=== PATIENT | female | born 1950 | race Caucasian/White ===

== ENCOUNTER → 2016-08-13 14:46 | Outpatient (CLI) | payer BC ==
[2013-05-19 09:07] VITALS: BMI 28.4
[~2016-08-13 14:46] MED LIST: ALDACTONE50 MG PO; AMBIEN10 MG PO; ARMOUR THYROID90 MG PO; ATARAX 25 MG TA25 MG PO; CALCIUM 600+D T1 TA1 PO; DULERA 200 MCG8.8 GM INH; ELIQUIS5 MG PO; ESTRACE1 MG PO; ESTRACE2 MG PO; FIRST-TESTOSTER60 G1; FLORAJEN3 CAPS460 MG PO; FLOVENT DI50 MCG/DIS INH; FLOVENT HFA 410.6 GM INH; FLUTICASONE PRO16 GM NASAL; FLUTICASONE PRO16 GM NS; GLUCOPHAGE500 MG PO; IBUPROFEN800 MG PO; LAMISIL250 MG PO; Levaquin PO; NYSTATIN ORAL SU5 ML PO; PROMETRIUM100 MG PO; PROMETRIUM200 MG PO; ROBAXIN-750750 MG PO; SINGULAIR10 MG PO; STRATTERA80 MG PO; SYMBICORT 16010.2 GM INH; VICTOZA0.6 MG/0.1 SQ; VITAMIN B COMPL1 TA1 PO; VITAMIN B-121000 MCG PO; VITAMIN D250000 UNIT PO; VITAMIN D5000 UNIT PO; XANAX0.5 MG; XOPENEX HFA15 GM INH; ZOLOFT100 MG PO; ZYRTEC10 MG PO
[2016-08-13 15:13] LABS: BASOPHILS 0.4 % (0.0-2.0); EOSINOPHILS 1.8 % (0-7); HEMATOCRIT 33.1 % (36.0-48.0); HEMOGLOBIN 11.2 g/dL (12-16); IMMATURE GRANULOCYTES 0.4 % (0-5); LYMPHOCYTES 11.3 % (15-50); MCH 31.7 pg (26.0-34.0); MCHC 33.8 g/dL (31.0-37.0); MCV 93.8 fL (80.0-100.0); MEAN PLATELET VOLUME 8.6 fL (7.4-10.4); MONOCYTES 11.3 % (2-11); NEUTROPHILS 74.8 % (40-80); PLATELET COUNT 211 10x3/uL (130-400); RBC 3.53 10x6/uL (4.00-5.40); WBC 10.4 10x3/uL (4.8-10.8)
[2016-08-27 18:34] VITALS: BMI 25.4
== END | disposition home or self-care (01) ==
LOC: D.RAD 14:46
PROVIDERS: Internal Medicine Pulmonary Disease
DX: J40 Bronchitis, not specified as acute or chronic (principal)

== ENCOUNTER 2016-08-27 15:17 | Inpatient (IN) | payer BC ==
[~2016-08-27] VITALS: Ht 157.5 cm; Wt 64.2 kg
[~2016-08-27 15:17] MED LIST changes: -ALDACTONE50 MG PO; -DULERA 200 MCG8.8 GM INH; -ELIQUIS5 MG PO; -ESTRACE2 MG PO; -FLORAJEN3 CAPS460 MG PO; -GLUCOPHAGE500 MG PO; -IBUPROFEN800 MG PO; -Levaquin PO; -NYSTATIN ORAL SU5 ML PO; -PROMETRIUM200 MG PO; -SINGULAIR10 MG PO; -VICTOZA0.6 MG/0.1 SQ; -VITAMIN B-121000 MCG PO; -ZOLOFT100 MG PO
[2016-08-27] MEDS ORDERED: ESTRACE2 MG PO (15:53)
[2016-08-27] MEDS ORDERED: ESTRACE1 MG PO (15:53)
[2016-08-27] MEDS ORDERED: PROMETRIUM200 MG PO (15:55)
[2016-08-27] MEDS ORDERED: DULERA 200 MCG8.8 GM INH (16:00)
[2016-08-27] MEDS ORDERED: SINGULAIR10 MG PO (16:01)
[2016-08-27] MEDS ORDERED: GLUCOPHAGE500 MG PO (16:02)
[2016-08-27] MEDS ORDERED: VICTOZA0.6 MG/0.1 SQ (16:03)
[2016-08-27] MEDS ORDERED: ZOLOFT100 MG PO (16:03)
[2016-08-27] MEDS ORDERED: VITAMIN B-121000 MCG PO (16:04)
[2016-08-27] MEDS ORDERED: ALDACTONE50 MG PO (16:05)
--- NOTE | 2016-08-27 16:20 | NUR ---
20 GAUGE IV PLACED TO LEFT FOREARM X 1 STICK. GOOD BLOOD RETURN, EASY FLUSH. TAPED, DATED AND SECURED. PATIENT TOLERATED IV PLACEMENT WELL. NO DISTRESS.
[2016-08-27 16:32] LABS: BASOPHILS 0.1 % (0.0-2.0); EOSINOPHILS 1.1 % (0-7); HEMATOCRIT 35.8 % (36.0-48.0); HEMOGLOBIN 12.5 g/dL (12-16); IMMATURE GRANULOCYTES 1.1 % (0-5); MCH 32.4 pg (26.0-34.0); MCHC 34.9 g/dL (31.0-37.0); MCV 92.7 fL (80.0-100.0); MEAN PLATELET VOLUME 8.5 fL (7.4-10.4); MONOCYTES 7.6 % (2-11); NEUTROPHILS 81.1 % (40-80); PLATELET COUNT 182 10x3/uL (130-400); RBC 3.86 10x6/uL (4.00-5.40); WBC 14.9 10x3/uL (4.8-10.8)
[2016-08-27 16:57] LABS: HEMOGLOBIN A1C 5.5 % (4.8-6.0)
[2016-08-27 16:57] LABS: ALBUMIN 3.4 g/dL (3.4-5.0); ANION GAP 16.1 mmol/L (8-16); BILIRUBIN - TOTAL 0.33 mg/dL (0.2-1.3); CALCIUM 8.7 mg/dL (8.5-10.1); CARBON DIOXIDE 22.7 mmol/L (21.0-32.0); POTASSIUM - SERUM 3.8 mmol/L (3.5-5.1); PROTEIN - SERUM 6.3 g/dL (6.4-8.2)
--- NOTE | 2016-08-27 17:20 | NUR ---
PATIENT LEFT FOR CT AT THIS TIME VIA WHEELCHAIR. NO DISTRESS.
--- NOTE | 2016-08-27 17:40 | NUR ---
PATIENT RETURNED FROM CT SCAN AND IV ABX STARTED AT THIS TIME. NO DISTRESS.
--- NOTE | 2016-08-27 18:00 | NUR ---
DR. BLANCHARD, RADIOLOGIST CALLED TO CONFIRM THAT PATIENT DOES HAVE A PULMONARY EMBOLISM IN LEFT LOWER LOBE AND RIGHT UPPER LOBE. DR. LANIER AT [facility] WHEN CALL RECEIVED AND MADE AWARE THAT PATIENT DOES HAVE PE. DR. LANIER SPOKE WITH PATIENT AND NEW ORDERS RECEIVED AND ENTERED INTO THE COMPUTER FOR LOVENOX 60MG BID.
[2016-08-27 18:34] VITALS: BP 121/58; Ht 157.5 cm; Wt 64.2 kg
[2016-08-27 19:27] LABS: ERYTHROCYTE SEDIMENTATION RATE 13 mm/hr (0-30)
[2016-08-27 20:00] VITALS: BP 136/57
--- NOTE | 2016-08-27 20:30 | NUR ---
ALERT AND ORIENTED X3, RESP UNLAB ON ROOM AIR. LEFT FA IV INTACT AND PATENT WITH NO R/S NOTED AT SITE. VOICES NO C/O PAIN OR DISCOMFORT AT THIS TIME. HOB UP SR UP X2, C/L IN REACH. DAUGHTER VISITING AT BEDSIDE. CONTINUE TO MONITOR.
[2016-08-27 21:47] LABS: APPEARANCE CLEAR (CLEAR); BILIRUBIN NEGATIVE (NEGATIVE); COLOR YELLOW (YELLOW); GLUCOSE NEGATIVE (NEGATIVE); KETONE NEGATIVE (NEGATIVE); LEUKOCYTE ESTERASE 2+ (NEGATIVE); NITRITE NEGATIVE (NEGATIVE); PROTEIN NEGATIVE (NEGATIVE); UROBILINOGEN NORMAL (NORMAL)
[2016-08-27 21:49] LABS: BACTERIA MODERATE /hpf (NONE SEEN); EPITHELIAL CELLS 0-5 /hpf (0-5)
[2016-08-28] VITALS: BP 97/44
[2016-08-28 04:00] VITALS: BP 136/64
[2016-08-28 05:38] LABS: BASOPHILS 0 % (0.0-2.0); EOSINOPHILS 0 % (0-7); HEMATOCRIT 31.9 % (36.0-48.0); HEMOGLOBIN 11.1 g/dL (12-16); IMMATURE GRANULOCYTES 0.8 % (0-5); LYMPHOCYTES 2.5 % (15-50); MCH 31.7 pg (26.0-34.0); MCHC 34.8 g/dL (31.0-37.0); MCV 91.1 fL (80.0-100.0); MEAN PLATELET VOLUME 8.8 fL (7.4-10.4); MONOCYTES 0.7 % (2-11); PLATELET COUNT 194 10x3/uL (130-400); RDW 13.6 % (11.5-14.5); WBC 9.6 10x3/uL (4.8-10.8)
[2016-08-28 05:43] LABS: CARBON DIOXIDE 19.3 mmol/L (21.0-32.0); CREATININE - SERUM 0.9 mg/dL (0.6-1.3); POTASSIUM - SERUM 3.3 mmol/L (3.5-5.1)
[2016-08-28 08:05] VITALS: BP 136/69
--- NOTE | 2016-08-28 09:29 | NUR ---
PT ASSESSMENT COMPLETED NO DISTRESS OBSERVED CALL LIGHT IN REACH SRX2 BED LOW AND LOCKED CALL LIGHT IN REACH SRX2 BED LOW AND LOCKED WILL MONITOR
--- NOTE | 2016-08-28 10:48 | HP ---
PATIENT: SHIRLEY MORENO MEDICAL RECORD: [id number] ACCOUNT: [id number] LOCATION:[address] : [birth year] ADMISSION DATE: 08/27/16 HISTORY AND PHYSICAL EXAMINATION HISTORY OF PRESENT ILLNESS: Ms. Moreno is a 65-year-old white female, patient of Dr. Connelly that was seen by Dr. Ortiz today and subsequently admitted for acute exacerbation of asthma and pneumonia. She has had dyspnea for 4 months, had a cardiac workup, which was negative by Dr. Bowers. She was started on p.o. steroids about 2 weeks ago and has not gotten any better. She had a nebulizer ordered, but has not received yet. She presents with dyspnea, worse with exertion, rhinorrhea and cough. She has not had any fever. She feels cold all the time. Perfumes and chemical tend to trigger asthma. She was at a this week with some exposure to triggers. She complained of chest tightness. She has chronic pain from fibromyalgia and takes NSAIDs ____. She has no diarrhea or constipation. PAST MEDICAL HISTORY: Significant for known prediabetes, fibromyalgia, hypothyroidism, asthma, restless legs syndrome and migraine headaches. PAST SURGICAL HISTORY: Surgeries include section times 3, Song fundoplication, cervical fusion with plate, Barnes's neuroma, bilateral tonsillectomy, tubal ligation, removal of a benign breast tumor, right knee scope and fifth finger ORIF. ALLERGIES: INCLUDE LATEX AND FRAGRANCES. HOME MEDICATIONS: Include estradiol, Prometrium, Dulera, Singulair, metformin 500 daily for prediabetes, sertraline 100 daily, Victoza 1.8 subQ daily, B12, spironolactone 50 mg a day, [place] Thyroid 90 mg a day, hydroxyzine 25 t.i.d. p.r.n., methocarbamol 750 q.i.d. p.r.n., amlodipine 10 at bedtime, Zyrtec, vitamin D3 and fluticasone. FAMILY HISTORY: Noncontributory. SOCIAL HISTORY: Does not drink. REVIEW OF SYSTEMS: Significant for URI symptoms as above. No fever. Increasing shortness of breath with wheezing. No diarrhea, constipation, nausea, or vomiting. No dysuria. PHYSICAL EXAMINATION: GENERAL: Alert, awake and conversant. HEENT: Mucous membranes are moist. Conjunctivae pink. Pupils are equal and reactive. NECK: Nontender. HEART: Regular rate and rhythm. LUNGS: No acute distress. Decreased breath sounds with some wheezes. There is no rhonchi. ABDOMEN: Soft. NEUROLOGIC: Without any gross focal deficits. IMPRESSION: 1. Pneumonia. 2. Asthma exacerbation. HISTORY AND PHYSICAL [id number] [place] 3. Rhinitis, thrush, fibromyalgia, hypothyroidism and prediabetes. PLAN: Admit orders written by Dr. Ortiz, appreciate his help. See orders for plan. TRANSINT:[id number] Voice Confirmation ID: [id number] DOCUMENT ID: [id number] JAYA LANIER DO at 1048 CC: [id number] DICTATION DATE: 08/27/16 170 EXTRUSION SUPERVISOR: 08/27/16 1741 ADM IN [facility] [address] [place] [address]
--- NOTE | 2016-08-28 11:26 | NUR ---
PT ECHO BEING COMPLETED AT THIS TIME NO DISTRESS OBSERVED DAUGHTER IN ROOM AT BEDSIDE WILL MONITOR
--- NOTE | 2016-08-28 15:37 | NUR ---
TELEMETRY ON PT AT THIS TIME AND READING 86 SR NO DISTRESS OBSERVED AND WILL MONITOR
--- NOTE | 2016-08-28 15:45 | NUR ---
PROVIDED PT WITH CULTURE CUP FOR RESPITORY CULTURE TO COLLECT AND CULTURE PER DR NICHOLSON
[2016-08-28 17:04] VITALS: BP 143/47
--- NOTE | 2016-08-28 19:56 | NUR ---
PT RESTING IN BED, FAMILY AT BEDSIDE. PT DENIES NEEDS. BED LOW. CL IN REACH.
--- NOTE | 2016-08-28 20:30 | NUR ---
PT TOOK HS MEDS WITHOUT DIFFICULTY. PT DENIES NEEDS AT THIS TIME. BED LOW. CL IN REACH.
[2016-08-28 21:17] VITALS: BP 122/60
--- NOTE | 2016-08-28 22:42 | NUR ---
PT RESTING, EYES CLOSED. BED LOW. CL IN REACH.
[2016-08-29 01:21] VITALS: BP 125/54
--- NOTE | 2016-08-29 02:38 | NUR ---
PT RESTING, EYES CLOSED. RR ARE EVEN AND UNLABORED. WCTM. BED LOW. CL IN REACH.
[2016-08-29 04:00] VITALS: BP 139/54
[2016-08-29 05:42] LABS: ANION GAP 16.2 mmol/L (8-16); CALCIUM 7.6 mg/dL (8.5-10.1); CARBON DIOXIDE 20.2 mmol/L (21.0-32.0); CREATININE - SERUM 1.1 mg/dL (0.6-1.3); POTASSIUM - SERUM 3.4 mmol/L (3.5-5.1)
[2016-08-29 05:45] LABS: BASOPHILS 0.1 % (0.0-2.0); EOSINOPHILS 0.6 % (0-7); HEMATOCRIT 29.6 % (36.0-48.0); HEMOGLOBIN 10.2 g/dL (12-16); IMMATURE GRANULOCYTES 0.7 % (0-5); LYMPHOCYTES 13.2 % (15-50); MCH 31.8 pg (26.0-34.0); MCHC 34.5 g/dL (31.0-37.0); MCV 92.2 fL (80.0-100.0); MEAN PLATELET VOLUME 8.8 fL (7.4-10.4); MONOCYTES 7.6 % (2-11); NEUTROPHILS 77.8 % (40-80); PLATELET COUNT 182 10x3/uL (130-400); RBC 3.21 10x6/uL (4.00-5.40)
[2016-08-29 05:47] LABS: WBC 12.6 10x3/uL (4.8-10.8)
--- NOTE | 2016-08-29 06:30 | NUR ---
PT AM MEDS ADMINISTERED ALONG WITH 40MEQ OF POTASSIUM FOR LEVEL 3.4. PT DENIES NEEDS. BED LOW. CL IN REACH.
--- NOTE | 2016-08-29 07:18 | NUR ---
PT SITTING UP IN BED RECEIVING BREATHING TX DENIES NEEDS WILL CONT TO MONITOR.
[2016-08-29 07:21] LABS: MAGNESIUM - SERUM 1.7 mg/dL (1.8-2.4); PHOSPHOROUS 2.7 mg/dL (2.5-4.9)
[2016-08-29 08:45] VITALS: BP 126/46
[2016-08-29] MEDS ORDERED: IBUPROFEN800 MG PO (10:40)
--- NOTE | 2016-08-29 11:05 | NUR ---
PT KCL LEVEL BACK UP TO 3.9. WILL REDRAW LABS FOR IN THE AM.
[2016-08-29 12:16] LABS: ANA REFLEX - DIRECT Negative (Negative)
[2016-08-29 12:16] LABS: ACLA - IGG AB <9 GPL U/mL (0-14); ACLA - IGM AB 16 MPL U/mL (0-12)
[2016-08-29 12:38] VITALS: BP 140/60
--- NOTE | 2016-08-29 12:45 | NUR ---
PT SITTING UP IN BED EATING LUNCH. FAMILY AT BEDSIDE. DENIES NEEDS WILL CONT TO MONITOR.
[2016-08-29 16:07] VITALS: BP 120/54
--- NOTE | 2016-08-29 18:16 | NUR ---
PT SITTING UP IN BED FAMILY AT BEDSIDE DENIES NEEDS
[2016-08-29 20:00] VITALS: BP 129/48
--- NOTE | 2016-08-29 20:20 | NUR ---
PT RECEIVED LYING IN BED AAOX3 WITH FAMILY AT BEDSIDE. ASSESSMENT COMPLETED PER FLOWSHEET AT THIS TIME. PT VOIDED APPROX 1000 CC QUETA URINE. EMPTIED FROM HAT AT THIS TIME. PT DENIES NEEDS. BED LOW. PHONE AND CALL LIGHT IN REACH. SRX2.
--- NOTE | 2016-08-29 21:10 | NUR ---
PT FSBS 130 AT THIS TIME. PT DENIES NEEDS. BED LOW. PHOEN AND CALL LIGHT IN REACH. SRX2.
--- NOTE | 2016-08-29 22:23 | NUR ---
PM MEDS GIVEN AT THIS TIME. PT DENIES NEEDS. BED LOW. PHONE AND CALL LIGHT IN REACH. SRX2.
--- NOTE | 2016-08-29 23:32 | NUR ---
PT RESTING QUIETLY AT THIS TIME WITH EYES CLOSED. RESPIRATIONS EVEN, NON-LABORED. NO ACUTE DISTRESS NOTED AT THIS TIME. BED LOW. PHONE AND CALL LIGHT IN REACH. SRX2.
[2016-08-30] VITALS: BP 123/47
--- NOTE | 2016-08-30 00:58 | NUR ---
PT RECEIVING BREATHING TREATMENT AT THIS TIME. DENIES NEEDS. BED LOW. PHONE AND CALL LIGHT IN REACH. SRX2.
--- NOTE | 2016-08-30 02:03 | NUR ---
PT RESTING QUIETLY AT THIS TIME WITH EYES CLOSED. AROUSED EASILY. DENIES NEEDS. BED LOW. PHONE AND CALL LIGHT IN REACH. SRX2.
[2016-08-30 04:00] VITALS: BP 115/58
--- NOTE | 2016-08-30 05:39 | NUR ---
PT RESTING QUIETLY AT THIS TIME WITH EYES CLOSED. AROUSED EASILY. ADMINISTERED PROTONIX PO PER ORDERS AT THIS TIME. PT DENIES NEEDS. BED LOW. PHONE AND CALL LIGHT IN REACH. SRX2.
[2016-08-30 05:45] LABS: BASOPHILS 0.2 % (0.0-2.0); EOSINOPHILS 2.4 % (0-7); HEMATOCRIT 30.9 % (36.0-48.0); HEMOGLOBIN 10.7 g/dL (12-16); IMMATURE GRANULOCYTES 0.4 % (0-5); LYMPHOCYTES 19.4 % (15-50); MCH 32.2 pg (26.0-34.0); MCHC 34.6 g/dL (31.0-37.0); MCV 93.1 fL (80.0-100.0); MEAN PLATELET VOLUME 8.4 fL (7.4-10.4); MONOCYTES 8.4 % (2-11); NEUTROPHILS 69.2 % (40-80); PLATELET COUNT 158 10x3/uL (130-400); RBC 3.32 10x6/uL (4.00-5.40); RDW 14.3 % (11.5-14.5); WBC 9.3 10x3/uL (4.8-10.8)
[2016-08-30 05:52] LABS: CALC OSMOLALITY 276 mosm/kg (275-300); CHLORIDE - SERUM 105 mmol/L (98-107); CREATININE - SERUM 0.8 mg/dL (0.6-1.3); GLUCOSE 97 mg/dL (74-106); MAGNESIUM - SERUM 2.1 mg/dL (1.8-2.4); PHOSPHOROUS 2.6 mg/dL (2.5-4.9); SODIUM 139 mmol/L (136-145); UREA NITROGEN 9 mg/dL (7-18); eGFR NON AFRICAN AMERICAN 77 mL/min (90-120)
--- NOTE | 2016-08-30 06:44 | NUR ---
PT FSBS 86 AT THIS TIME. PT DENIES NEEDS. BED LOW. PHONE AND CALL LIGHT IN REACH. SRX2.
--- NOTE | 2016-08-30 07:22 | NUR ---
PT SITTING UP IN BED WATCHING TV DENIES NEEDS WILL CONT TO MONITOR
[2016-08-30 08:56] VITALS: BP 122/65
[2016-08-30 09:17] LABS: PROTEIN S - FREE 60 % (57-157); PROTEIN S - TOTAL 99 % (60-150)
[2016-08-30] MEDS ORDERED: ELIQUIS5 MG PO (10:24)
[2016-08-30] MEDS ORDERED: Levaquin PO (10:24)
[2016-08-30] MEDS ORDERED: NYSTATIN ORAL SU5 ML PO (10:24)
[2016-08-30] MEDS ORDERED: FLORAJEN3 CAPS460 MG PO (10:26)
[2016-08-30 11:19] LABS: PROTEIN S - FREE 65 % (57-157); PROTEIN S - FUNCTIONAL 104 % (63-140); PROTEIN S - TOTAL 96 % (60-150)
--- NOTE | 2016-08-30 12:38 | NUR ---
Patient Name: SHIRLEY SMION Admission Status: Urgent Accout number: [id number] Admission Date: 08-27-2016 : 1950 Admission Diagnosis:SHORTNESS OF BREATH Attending: YSABEL Current LOS: 3 Anticipated DC Date: 08-30-2016 Planned Disposition: Home or Self Care Primary Insurance: [employer] [facility] Discharge Planning Comments: CM met with patient and patient's daughter "Monique" ([phone]) at bedside to discuss discharge planning and needs. The patient resides at home with her spouse in a single story home with 2 steps at the front door. Her daughter states she lives next door and is available to assist with any needs. The patient denies the need for home health or DME supplies at this time. Patient states she is independent of all ADL's. Her daughter will be her transportation home at discharge. CM will continue to follow and assist as needed with discharge planning/needs. Box Stacker: Brooklyn Cardona * Is the patient Alert and Oriented? Yes 0 * How many steps to enter\\exit or inside your home? 2 0 * PCP DR. GARCÍA 0 * [facility] [phone] 0 * Preadmission Environment Home with Family 0 * ADLs Independent 0 * Equipment None 0 * List name and contact numbers for known caregivers / representatives who currently or will assist patient after discharge: EDI SIMON (SPOUSE) [phone] "MONIQUE" (DTR) [phone] 0 * Community resources currently utilized None 0 * Additional services required to return to the preadmission environment? No 0 * Can the patient safely return to the preadmission environment? Yes 0 * Has this patient been hospitalized within the prior 30 days at any hospital? No 0 Grand Total: 0
[2016-08-30] MEDS ORDERED: GLUCOPHAGE500 MG PO (12:52)
[2016-08-30] MEDS ORDERED: VICTOZA0.6 MG/0.1 SQ (12:52)
--- NOTE | 2016-08-30 13:27 | NUR ---
WENT OVER DC INSTRUCTIONS WITH PT PT VERBALIZES UNDERSTANDING. DC TELE. DC PIV WITH CATHETER TIP INTACT. GIVEN PT SCRIPTS FOR PRESCRIBED MEDICATIONS. PT GETTING DRESSED AND WILL CALL WHEN READY FOR WHEELCHAIR.
[2016-08-30 14:21] LABS: LUPUS - INTERPRETATION Comment: (()); LUPUS - THROMBIN TIME 14.7 sec (0.0-20.9); PTT-LA 39.7 sec (0.0-43.6)
[2016-08-31 03:08] LABS: PROTEIN C - ANTIGEN 116 % (60-150); PROTEIN C - FUNCTIONAL 137 % (73-180)
--- NOTE | 2016-09-03 08:17 | EC ---
PATIENT:SHIRLEY SIMON DATE OF SERVICE: 08/27/16 SEX: F MEDICAL RECORD: [id number] DATE OF : [birth year] LOCATION:D. [address].211 AGE OF PATIENT: 65 ADMISSION DATE: 08/27/16 REFERRING PHYSICIAN: INTERPRETING PHYSICIAN: DORETHA MOLINA M.D. ECHOCARDIOGRAM REPORT ECHO CHARGES 4 ECHO COMPLETE CLINICAL DIAGNOSIS: BILATERAL PE ECHOCARDIOGRAPHIC MEASUREMENTS (adult normal given) AC root (d.<3.7cm) 3.4 LV Septum d (<1.2 cm> 1.6 Valve Excursion 2.1 LV Septum (systole) 2.3 Left Atria (s.<4.0cm> 3.5 LVPW d(<1.2cm) 1.3 RV (d.<2.3cm) 2.6 LVPW (sytole) 2.0 LV diastole(<5.6CM) 4.2 MV E-F(>70mm/sec) LV systole 2.0 LVOT Diameter 1.7 MV exc.(>10mm) Est.ejection fraction (50-75%) Pericardial Effusion N DOPPLER: LVIT A 72.0 E 59.0 LA RVSP 54.0 LVOT 148 AOP1/2T Asc. Ao 200 RVOT 75.0 RA PA 89.0 AV Gradient Peak 16.0 AV Mean 7.7 AV Area 1.6 MV Gradient Peak 3.4 MV Mean 1.2 MV Area COMMENTS: Civil Drafting Technician: Cruz PRITCHARDOE Entry Level Software Developer:2 Dr. Molina TAPE# PACS DATE OF SERVICE: 08/28/2016 INDICATION: Pulmonary embolus. DESCRIPTION: Left ventricle demonstrates left ventricular hypertrophy. No wall motion was noted. Estimated ejection fraction is 60%. Mitral valve is structurally normal. There is trivial regurgitation seen. Left atrium is normal in size. The aortic valve leaflets are slightly thickened. There is moderate insufficiency seen, but no evidence of stenosis. Right ventricle is mildly dilated. Systolic function appears normal. Tricuspid valve is ECHOCARDIOGRAM REPORT [id number] SHIRLEY SIMON structurally normal. There is moderate regurgitation seen. Right ventricular systolic pressure is elevated at 54 mmHg. There is no pericardial effusion seen. IMPRESSION: 1. Left ventricular hypertrophy with preserved ejection fraction of 60%. 2. Moderate tricuspid regurgitation with elevated pulmonary pressures. 3. Moderate aortic insufficiency. TRANSINT:[id number] Voice Confirmation ID: [id number] DOCUMENT ID: [id number] DORETHA MOLINA M.D. at 0817 CC: [id number] DICTATION DATE: 08/28/16 1433 ELEMENT BURNER: 08/29/16 1052 DIS IN 08/30/16 [facility] [address] [place] [id number]
[2016-09-03 19:10] LABS: FACTOR II DNA ANALYSIS Negative (())
--- NOTE | 2016-10-10 15:50 | DS ---
PATIENT:SHIRLEY SIMON :[birth year] MEDICAL RECORD: [id number] DISCHARGE SUMMARY ADMISSION DATE: 08/27/16 DISCHARGE DATE: 08/30/16 DATE OF ADMISSION: 08/27/2016 DATE OF DISCHARGE: 08/30/2016 ADMITTING DIAGNOSES: 1. Pneumonia. 2. Asthma exacerbation. 3. Rhinitis, thrush, fibromyalgia, hypothyroid disease and prediabetes. HOSPITAL COURSE: This is a 65-year-old white female patient of Dr. Real's admitted with diagnoses as outlined above. Details are well-outlined in the history of the present illness, H&P. All events, lab procedures, diagnostic testing are well documented in the records. The patient was admitted, appropriate home medicines continued. Dr. Scott consulted for pulmonary management. His recommendations were followed. Dr. Molina consulted to read echo. EF 60, moderate TR, moderate tricuspid regurgitation, elevated pulmonary pressures at 54 and moderate aortic insufficiency. On 08/30/2016, the patient is afebrile, pulse 72, respirations 18, blood pressure 122/65 and O2 sat 98% on room air. Glucose 126, 130. Sodium 139, potassium 4.0, chloride 105, CO2 of 25, BUN 9, serum creatinine 0.8, calcium 8.0. White count 9.3, hemoglobin 10.7, platelets are 158. Urine grew some yeast. She completed IV antibiotics, completed steroids, found to have a DVT and pulmonary embolus. Her estrogen, progesterone and testosterone were stopped. She was started on therapeutic Lovenox and then transitioned to Eliquis. Dr. Scott did do a hypercoagulable workup, sent out labs, pending at the time of this discharge. Hemoglobin A1c 5.5. She was on Accu-Chek blood sugars low-resistant sliding scale insulin. On 08/30/2016, she was stable for dismissal home. She would follow up with Zurdo Herrera in 1 week. Please refer to med rec. She did have an additional regimen 4 days of Levaquin and was started on Eliquis. DIAGNOSES: Pulmonary embolus, deep venous thrombosis, pneumonia, asthma exacerbation, rhinitis, allergic, thrush, anemia, unknown etiology, fibromyalgia and hypothyroid disease. Echo revealing moderate tricuspid regurg with elevated pulmonary pressure at 54. Hypocoagulable workup pending. Greater than 30 minutes was spent on this discharge. TRANSINT:[id number] Voice Confirmation ID: [id number] DOCUMENT ID: [id number] Dictated By: TYREE IRVIN RN I have interviewed/examined the above patient and agree with these documented findings. DISCHARGE SUMMARY REPORT [id number] SHIRLEY SIMON MATTHEW DO at 1012 at 1550 CC: [id number] DICTATION DATE: 10/09/16 1605 CORPORATE EVENT PLANNER: 10/10/16 1312 DIS IN 08/30/16 [place] [id number] [place] [id number]
== END 2016-08-30 14:00 | disposition home or self-care (01) | DRG 175 ==
LOC: D.M2 15:17
PROVIDERS: Family Medicine; Internal Medicine Pulmonary Disease; ADMIT Family Medicine
DX: I26.99 Other pulmonary embolism without acute cor pulmonale (principal); J15.6 Pneumonia due to other Gram-negative bacteria; J13 Pneumonia due to Streptococcus pneumoniae; I82.4Z2 Acute embolism and thrombosis of unspecified deep veins of left distal lower extremity; D68.59 Other primary thrombophilia; J45.901 Unspecified asthma with (acute) exacerbation; G25.81 Restless legs syndrome; E03.9 Hypothyroidism, unspecified; B37.9 Candidiasis, unspecified; M79.7 Fibromyalgia; E55.9 Vitamin D deficiency, unspecified; D64.9 Anemia, unspecified; I08.2 Rheumatic disorders of both aortic and tricuspid valves

== ENCOUNTER 2016-09-13 17:08 | Emergency (ER) | payer BC ==
[2016-08-27 18:34] VITALS: BMI 25.4
[~2016-09-13 17:08] MED LIST changes: +ALDACTONE50 MG PO; +DULERA 200 MCG8.8 GM INH; +ELIQUIS5 MG PO; +ESTRACE2 MG PO; +FLORAJEN3 CAPS460 MG PO; +GLUCOPHAGE500 MG PO; +IBUPROFEN800 MG PO; +Levaquin PO; +NYSTATIN ORAL SU5 ML PO; +PROMETRIUM200 MG PO; +SINGULAIR10 MG PO; +VICTOZA0.6 MG/0.1 SQ; +VITAMIN B-121000 MCG PO; +ZOLOFT100 MG PO
[2016-09-13 18:25] LABS: APPEARANCE HAZY (CLEAR); COLOR YELLOW (YELLOW); LEUKOCYTE ESTERASE 1+ (NEGATIVE); NITRITE NEGATIVE (NEGATIVE); PROTEIN TRACE mg/dL (NEGATIVE)
[2016-09-13 18:26] LABS: BACTERIA FEW /hpf (NONE SEEN); BILIRUBIN NEGATIVE (NEGATIVE); EPITHELIAL CELLS 0-5 /hpf (0-5); GLUCOSE NEGATIVE (NEGATIVE); KETONE NEGATIVE (NEGATIVE); RED CELLS - URINE >50 /hpf (0-5); UROBILINOGEN NORMAL (NORMAL)
[2016-09-13 22:39] LABS: BASOPHILS 0.3 % (0.0-2.0); EOSINOPHILS 3.4 % (0-7); HEMOGLOBIN 10.6 g/dL (12-16); IMMATURE GRANULOCYTES 0.2 % (0-5); LYMPHOCYTES 22.5 % (15-50); MCH 31.5 pg (26.0-34.0); MCHC 34.2 g/dL (31.0-37.0); MCV 92.3 fL (80.0-100.0); MEAN PLATELET VOLUME 8.2 fL (7.4-10.4); MONOCYTES 10.5 % (2-11); NEUTROPHILS 63.1 % (40-80); RBC 3.36 10x6/uL (4.00-5.40); RDW 13.9 % (11.5-14.5); WBC 6.2 10x3/uL (4.8-10.8)
[2016-09-13 22:49] LABS: INR 1.02 (0.85-1.17); PROTIME 13.2 SECONDS (11.6-15.0)
[2016-09-13 22:50] LABS: PLATELET COUNT 315 10x3/uL (130-400)
== END 2016-09-13 23:30 | disposition home or self-care (01) ==
LOC: D.ER 17:08
PROVIDERS: Family Medicine; Nurse Practitioner Acute Care
DX: R31.9 Hematuria, unspecified (principal); J45.909 Unspecified asthma, uncomplicated

== ENCOUNTER → 2016-10-01 11:04 | Outpatient (CLI) | payer BC ==
[2016-08-27 18:34] VITALS: BMI 25.4
== END | disposition home or self-care (01) ==
LOC: D.RAD 11:04
DX: J18.9 Pneumonia, unspecified organism (principal)

== ENCOUNTER 2016-12-13 15:07 | Emergency (ER) | payer BC ==
[2016-08-27 18:34] VITALS: BMI 25.4
[2016-12-13 16:14] LABS: BASOPHILS 0.4 % (0-2); EOSINOPHILS 2.2 % (0-7); HEMATOCRIT 31.1 % (36.0-48.0); HEMOGLOBIN 10.4 g/dL (12-16); LYMPHOCYTES 27.1 % (15-50); MCH 30.4 pg (26.0-34.0); MCHC 33.4 g/dL (31.0-37.0); MCV 90.9 fL (80.0-100.0); MEAN PLATELET VOLUME 8.5 fL (7.4-10.4); MONOCYTES 12.9 % (2-11); NEUTROPHILS 57.4 % (40-80); RBC 3.42 10x6/uL (4.00-5.40); RDW 14.1 % (11.5-14.5); WBC 5.6 10x3/uL (4.8-10.8)
[2016-12-13 16:22] LABS: APTT 27.3 SECONDS (22.8-39.4); PLATELET COUNT 232 10x3/uL (130-400)
[2016-12-13 16:27] LABS: ALKALINE PHOSPHATASE 55 U/L (46-116); ALT (SGPT) 18 U/L (10-68); BILIRUBIN - TOTAL 0.28 mg/dL (0.2-1.3); CALC OSMOLALITY 276 mosm/kg (275-300); CALCIUM 9.3 mg/dL (8.5-10.1); CHLORIDE - SERUM 106 mmol/L (98-107); GLUCOSE 88 mg/dL (74-106); POTASSIUM - SERUM 4.2 mmol/L (3.5-5.1); PROTEIN - SERUM 7.2 g/dL (6.4-8.2); SODIUM 139 mmol/L (136-145); UREA NITROGEN 13 mg/dL (7-18); eGFR NON AFRICAN AMERICAN 59 mL/min (90-120)
[2016-12-13 16:31] LABS: TROPONIN-I < 0.017 ng/mL (0.000-0.060)
== END 2016-12-13 19:15 | disposition home or self-care (01) ==
LOC: D.ER 15:07
PROVIDERS: Emergency Medicine
DX: R06.02 Shortness of breath (principal); R07.81 Pleurodynia; Z86.718 Personal history of other venous thrombosis and embolism; Z79.01 Long term (current) use of anticoagulants; M79.661 Pain in right lower leg

== ENCOUNTER → 2017-01-24 08:02 | Outpatient (CLI) | payer BC ==
[2016-08-27 18:34] VITALS: BMI 25.4
--- NOTE | 2017-01-27 18:00 | EMG ---
PATIENT:SHIRLEY SIMON DATE OF SERVICE: 01/24/17 MEDICAL RECORD: [id number] DATE OF : 54 LOCATION: [facility] ADMISSION DATE: REFERRING PHYSICIAN: KATHY MA MD INTERPRETING PHYSICIAN: LUIS CHRISTINE MD DATE OF SERVICE: 01/24/2017 Referred as an outpatient by Dr. Ma. ELECTROMYOGRAPHIC DATA: Electromyographic examination is limited to both upper extremities and is limited to the nerve conduction studies only as the patient is currently on Eliquis. In the right upper extremity, right median motor stimulation elicits a compound motor action potential with a distal latency of 2.7 milliseconds, peak amplitude of 9 millivolts, and calculated conduction velocity of 51 meters per second. Right ulnar motor stimulation elicits a compound motor action potential with a distal latency of 3.0 milliseconds, peak amplitude of 6 millivolts, and calculated conduction velocity of 59 meters per second. Right ulnar motor stimulation across the elbow fails to elicit evidence of conduction block at this level. Antidromic right median sensory stimulation elicits a response with a distal latency of 3.6 milliseconds, amplitude of 16 microvolts and calculated conduction velocity of 51 meters per second. Antidromic right ulnar sensory stimulation elicits a response with a distal latency of 3.5 milliseconds, amplitude of 15 microvolts and calculated conduction velocity of 54 meters per second. The right median F wave has a latency of 28 milliseconds. In the left upper extremity, left median motor stimulation elicits a compound motor action potential with a distal latency of 3.3 milliseconds, peak amplitude of 7 millivolts, and calculated conduction velocity of 52 meters per second. Left ulnar motor stimulation elicits a compound motor action potential with a distal latency of 3.3 milliseconds, peak amplitude of 6 millivolts and calculated conduction velocity of 60 meters per second. Left ulnar motor stimulation across the elbow fails to elicit evidence of conduction block at this level. Antidromic left median sensory stimulation elicits a response with a distal latency of 3.3 milliseconds, amplitude of 16 microvolts and calculated conduction velocity of 56 meters per second. Antidromic left ulnar sensory stimulation elicits a response with a distal latency of 3.8 milliseconds, amplitude of 5 microvolts and calculated conduction velocity of 55 meters per second. The left median F wave has a latency of 28 milliseconds. Needle electrode examination is not performed at this time as the patient is currently on Eliquis. INTERPRETATION: Electromyographic examination of both upper extremities, limited to the nerve conduction studies only, is normal. All values fall within normal limits. TRANSINT:[id number] Voice Confirmation ID: [id number] DOCUMENT ID: [id number] ELECTROMYGRAM/NERVE CONDUCTION [id number] SHIRLEY SIMON DONALD P MD at 1800 CC: [id number] DICTATION DATE: 01/26/17 0556 BATTERY FILLER: 01/26/17 0841 [facility] CLI 01/24/[address] [address]
== END | disposition home or self-care (01) ==
LOC: D.CN 08:02
DX: M79.601 Pain in right arm (principal); M79.602 Pain in left arm; R20.2 Paresthesia of skin

== ENCOUNTER → 2017-01-27 08:51 | Outpatient (CLI) | payer BC ==
[2016-08-27 18:34] VITALS: BMI 25.4
--- NOTE | 2017-01-31 10:24 | EC ---
PATIENT:SHIRLEY SIMON DATE OF SERVICE: 01/27/17 SEX: F MEDICAL RECORD: [id number] DATE OF : 54 LOCATION:[facility] AGE OF PATIENT: 66 ADMISSION DATE: 01/27/17 REFERRING PHYSICIAN: INTERPRETING PHYSICIAN: STEPHANIE CADE MD ECHOCARDIOGRAM REPORT ECHO CHARGES 4 ECHO COMPLETE CLINICAL DIAGNOSIS: PULMONARY HTN ECHOCARDIOGRAPHIC MEASUREMENTS (adult normal given) AC root (d.<3.7cm) 3.2 cm LV Septum d (<1.2 cm> 1.9 cm Valve Excursion 2.2 cm LV Septum (systole) 2.0 cm Left Atria (s.<4.0cm> 3.4 cm LVPW d(<1.2cm) 1.3 cm RV (d.<2.3cm) 2.6 cm LVPW (sytole) 1.8 cm LV diastole(<5.6CM) 4.8 cm MV E-F(>70mm/sec) cm LV systole 2.8 cm LVOT Diameter 1.9 cm MV exc.(>10mm) cm Est.ejection fraction (50-75%) % Pericardial Effusion N DOPPLER: LVIT cm/sec A 76.0 cm/sec E 56.0 cm/sec LA cm/sec RVSP 43.0 mmHg LVOT 101 cm/sec AOP1/2T 1264 m/s Asc. Ao 147 cm/sec RVOT 69.0 cm/sec RA cm/sec PA 81.0 cm/sec AV Gradient Peak 8.6 mmHg AV Mean 4.9 mmHg AV Area 1.7 cm MV Gradient Peak 4.9 mmHg MV Mean 1.5 mmHg MV Area cm COMMENTS: Retail Support Specialist: Cruz PRITCHARDOE Body Straightener: 3 Dr. Bowers TAPE# PACS DATE OF SERVICE: 01/27/2017 Adequate 2D echo, color flow, spectral Doppler, and M-mode. LVH is present. LV internal dimension is normal. Wall motion is normal. EF greater than 55%. Aortic valve is tricuspid. No evidence of stenosis by Doppler interrogation. Left atrium is normal at 3.4 cm. Mitral valve is minimally thickened. Trace MR. Right-sided chamber is grossly normal. Pdbn-yc-engugyut TR. RV systolic pressure is estimated at 40 mmHg, putting this in the mild pulmonary hypertension range. ECHOCARDIOGRAM REPORT [id number] SHIRLEY SIMON TRANSINT:[id number] Voice Confirmation ID: [id number] DOCUMENT ID: [id number] STEPHANIE CADE MD at 1024 CC: [id number] DICTATION DATE: 01/27/17 1408 VISUAL MERCHANDISING ASSISTANT: 01/27/17 190 [facility]P CLI 01/27/17 [place] [id number] [place] [id number]
== END | disposition home or self-care (01) ==
LOC: D.ECHO 08:51
DX: I27.2 Other secondary pulmonary hypertension (principal)

== ENCOUNTER → 2017-03-31 16:25 | Outpatient (CLI) | payer BC ==
[2016-08-27 18:34] VITALS: BMI 25.4
[2017-03-31 16:39] LABS: BASOPHILS 0.7 % (0-2); EOSINOPHILS 2.4 % (0-7); HEMATOCRIT 33.3 % (36.0-48.0); HEMOGLOBIN 11.1 g/dL (12-16); IMMATURE GRANULOCYTES 0.2 % (0-5); LYMPHOCYTES 18.9 % (15-50); MCH 31.4 pg (26.0-34.0); MCHC 33.3 g/dL (31.0-37.0); MCV 94.3 fL (80.0-100.0); MONOCYTES 9.6 % (2-11); NEUTROPHILS 68.2 % (40-80); PLATELET COUNT 268 10x3/uL (130-400); RBC 3.53 10x6/uL (4.00-5.40); RDW 14.5 % (11.5-14.5); WBC 5.9 10x3/uL (4.8-10.8)
[2017-03-31 16:54] LABS: % SATURATION 10 % (15-55); IRON 49 ug/dl (35-150); TOTAL IRON BIND CAPACITY 455 ug/dl (260-445); UNSAT IRON BIND CAPACITY 406 ug/dl (150-375)
== END | disposition home or self-care (01) ==
LOC: D.LABREF 16:25
PROVIDERS: Internal Medicine Gastroenterology
DX: D64.9 Anemia, unspecified (principal); Z48.815 Encounter for surgical aftercare following surgery on the digestive system

== ENCOUNTER → 2017-06-02 08:17 | Outpatient (CLI) | payer BC ==
[2016-08-27 18:34] VITALS: BMI 25.4
--- NOTE | 2017-06-11 15:46 | EC ---
PATIENT:SHIRLEY SIMON DATE OF SERVICE: 06/02/17 SEX: F MEDICAL RECORD: [id number] DATE OF : 54 [facility] AGE OF PATIENT: 66 ADMISSION DATE: 06/02/17 REFERRING PHYSICIAN: INTERPRETING PHYSICIAN: NYLA WERNER MD ECHOCARDIOGRAM REPORT ECHO CHARGES 4 ECHO COMPLETE CLINICAL DIAGNOSIS: PULMONARY EMBOLISM ECHOCARDIOGRAPHIC MEASUREMENTS (adult normal given) AC root (d.<3.7cm) 3.4 cm LV Septum d (<1.2 cm> 1.8 cm Valve Excursion 2.1 cm LV Septum (systole) 2.2 cm Left Atria (s.<4.0cm> 3.2 cm LVPW d(<1.2cm) 1.7 cm RV (d.<2.3cm) 2.8 cm LVPW (sytole) 2.1 cm LV diastole(<5.6CM) 3.9 cm MV E-F(>70mm/sec) cm LV systole 2.0 cm LVOT Diameter 2.0 cm MV exc.(>10mm) cm Est.ejection fraction (50-75%) % Pericardial Effusion N DOPPLER: LVIT cm/sec A 59.0 cm/sec E 49.0 cm/sec LA cm/sec RVSP 41.2 mmHg LVOT 97.0 cm/sec AOP1/2T 715.0m/s Asc. Ao 169.0cm/sec RVOT 60.0 cm/sec RA cm/sec PA 77.0 cm/sec AV Gradient Peak 12.0 mmHg AV Mean 5.2 mmHg AV Area 1.6 cm MV Gradient Peak 2.8 mmHg MV Mean 0.90 mmHg MV Area cm COMMENTS: Clerk Cashier: Cruz PRITCHARDOE Client Experience Consultant: 3 Dr. Bowers TAPE# PACS DATE OF SERVICE: 06/02/2017 Echocardiogram FINDINGS: 1. Left ventricular chamber size is within normal limits. Left ventricular systolic function is normal. Overall ejection fraction estimated at 55%. 2. Left atrium, right atrium, and right ventricular chamber sizes are within normal limits. 3. Valvular structures have normal structure and motion. ECHOCARDIOGRAM REPORT [id number] SHIRLEY SIMON 4. Doppler interrogation reveals mild aortic insufficiency, trace mitral regurgitation, ttlo-sq-bnyyzzul tricuspid regurgitation, no other valvular insufficiency or stenosis. Pulmonary systolic pressure is estimated 41 mmHg. 5. No evidence of pericardial effusion or left ventricular thrombus. TRANSINT:[id number] Voice Confirmation ID: [id number] DOCUMENT ID: [id number] NYLA WERNER MD at 1546 CC: [id number] DICTATION DATE: 06/02/17 1128 TONGUE AND GROOVE MACHINE SETTER: 06/02/17 1142 [facility]P CLI 06/02/17 [place] [id number] [place] [address]
== END | disposition home or self-care (01) ==
LOC: D.ECHO 08:17
DX: J84.9 Interstitial pulmonary disease, unspecified (principal); I26.99 Other pulmonary embolism without acute cor pulmonale

== ENCOUNTER 2017-11-10 18:23 | Emergency (ER) | payer BC ==
[2016-08-27 18:34] VITALS: BMI 25.4
[2017-11-10 19:26] LABS: BASOPHILS 0.5 % (0-2); EOSINOPHILS 1.2 % (0-7); HEMATOCRIT 34.4 % (36.0-48.0); HEMOGLOBIN 11.5 g/dL (12-16); IMMATURE GRANULOCYTES 0.7 % (0-5); LYMPHOCYTES 12.8 % (15-50); MCH 32.9 pg (26.0-34.0); MCHC 33.4 g/dL (31.0-37.0); MCV 98.3 fL (80.0-100.0); MEAN PLATELET VOLUME 9.2 fL (7.4-10.4); MONOCYTES 9.7 % (2-11); NEUTROPHILS 75.1 % (40-80); PLATELET COUNT 294 10x3/uL (130-400); RDW 14.1 % (11.5-14.5); WBC 12.9 10x3/uL (4.8-10.8)
[2017-11-10 19:27] LABS: APPEARANCE CLEAR (CLEAR); BILIRUBIN NEGATIVE (NEGATIVE); COLOR YELLOW (YELLOW); GLUCOSE NEGATIVE (NEGATIVE); KETONE NEGATIVE (NEGATIVE); NITRITE NEGATIVE (NEGATIVE); PROTEIN NEGATIVE (NEGATIVE); SPECIFIC GRAVITY 1.015 (1.005-1.020); UROBILINOGEN NORMAL (NORMAL)
[2017-11-10 19:31] LABS: WHITE CELLS - URINE 0-5 /hpf (0-5)
[2017-11-10 19:32] LABS: BACTERIA FEW /hpf (NONE SEEN); EPITHELIAL CELLS 0-5 /hpf (0-5); HYALINE CAST 0-5 /lpf (NONE SEEN); RED CELLS - URINE 0-5 /hpf (0-5)
[2017-11-10 19:56] LABS: ALBUMIN 4.3 g/dL (3.4-5.0); ANION GAP 17.6 mmol/L (8-16); BILIRUBIN - TOTAL 0.3 mg/dL (0.2-1.3); CALCIUM 10.4 mg/dL (8.5-10.1); CARBON DIOXIDE 22.6 mmol/L (21.0-32.0); CREATININE - SERUM 1.5 mg/dL (0.6-1.3); POTASSIUM - SERUM 5.2 mmol/L (3.5-5.1); PROTEIN - SERUM 7.7 g/dL (6.4-8.2)
[2017-11-10 20:23] LABS: CKMB 3.3 U/L (0.0-3.6); CREATINE KINASE 85 UL (21-215); TROPONIN-I < 0.017 ng/mL (0.000-0.060)
== END 2017-11-10 22:39 | disposition home or self-care (01) ==
LOC: D.ER 18:23
PROVIDERS: Emergency Medicine; Physician Assistant Medical
DX: K59.00 Constipation, unspecified (principal); R00.1 Bradycardia, unspecified; I44.4 Left anterior fascicular block

== ENCOUNTER 2017-11-19 15:09 | Inpatient (IN) | payer BC ==
[~2017-11-19] VITALS: Ht 157.5 cm; Wt 64.1 kg
[2017-11-19] MEDS ORDERED: SYMBICORT 16010.2 GM INH (15:21)
[2017-11-19 15:59] LABS: BASOPHILS 0.5 % (0-2); EOSINOPHILS 0.9 % (0-7); HEMOGLOBIN 10.6 g/dL (12-16); IMMATURE GRANULOCYTES 0.5 % (0-5); LYMPHOCYTES 17.5 % (15-50); MCH 32.9 pg (26.0-34.0); MCHC 34.2 g/dL (31.0-37.0); MCV 96.3 fL (80.0-100.0); MEAN PLATELET VOLUME 8.5 fL (7.4-10.4); MONOCYTES 11.1 % (2-11); NEUTROPHILS 69.5 % (40-80); RBC 3.22 10x6/uL (4.00-5.40); RDW 13.7 % (11.5-14.5); WBC 8.2 10x3/uL (4.8-10.8)
[2017-11-19 16:12] LABS: ALBUMIN 4.1 g/dL (3.4-5.0); ALKALINE PHOSPHATASE 53 U/L (46-116); ALT (SGPT) 22 U/L (10-68); BILIRUBIN - TOTAL 0.37 mg/dL (0.2-1.3); CALC OSMOLALITY 279 mosm/kg (275-300); CALCIUM 9.1 mg/dL (8.5-10.1); CARBON DIOXIDE 26.3 mmol/L (21.0-32.0); CHLORIDE - SERUM 105 mmol/L (98-107); CREATININE - SERUM 1.7 mg/dL (0.6-1.3); GLUCOSE 78 mg/dL (74-106); POTASSIUM - SERUM 4.4 mmol/L (3.5-5.1); PROTEIN - SERUM 7.3 g/dL (6.4-8.2); SODIUM 140 mmol/L (136-145); UREA NITROGEN 17 mg/dL (7-18); eGFR NON AFRICAN AMERICAN 32 mL/min (90-120)
[2017-11-19 16:22] LABS: CKMB 1.3 U/L (0.0-3.6); CREATINE KINASE 84 UL (21-215); PRO BNP 100 pg/mL (0-125)
[2017-11-19 16:27] LABS: PLATELET COUNT 230 10x3/uL (130-400)
[2017-11-19 19:55] LABS: APTT 27.5 SECONDS (22.8-39.4)
[2017-11-19 19:57] LABS: D-DIMER-QUANTITATIVE 1.23 ug/mLFEU (0.20-0.54)
[2017-11-19 21:23] LABS: ALBUMIN 4.1 g/dL (3.4-5.0); ANION GAP 14.7 mmol/L (8-16); BILIRUBIN - TOTAL 0.3 mg/dL (0.2-1.3); CARBON DIOXIDE 22.8 mmol/L (21.0-32.0); CREATININE - SERUM 1.7 mg/dL (0.6-1.3); POTASSIUM - SERUM 4.5 mmol/L (3.5-5.1); PROTEIN - SERUM 7.3 g/dL (6.4-8.2)
[2017-11-20 02:31] VITALS: BP 112/43; BMI 25.8
[2017-11-20 04:00] VITALS: BP 97/39
[2017-11-20 08:59] VITALS: BP 113/58
[2017-11-20] MEDS ORDERED: GLUCOPHAGE XR750 MG PO (11:54)
[2017-11-20 11:58] VITALS: Ht 157.5 cm; Wt 64.1 kg
[2017-11-20 12:13] VITALS: BP 109/52
[2017-11-20 14:14] LABS: % SATURATION 13 % (15-55); IRON 46 ug/dl (35-150); TOTAL IRON BIND CAPACITY 352 ug/dl (260-445); UNSAT IRON BIND CAPACITY 306 ug/dl (150-375)
[2017-11-20 15:43] VITALS: BP 102/48
[2017-11-20 16:58] LABS: APPEARANCE CLEAR (CLEAR); BILIRUBIN NEGATIVE (NEGATIVE); COLOR STRAW (YELLOW); GLUCOSE NEGATIVE (NEGATIVE); KETONE NEGATIVE (NEGATIVE); NITRITE NEGATIVE (NEGATIVE); PROTEIN NEGATIVE (NEGATIVE); UROBILINOGEN NORMAL (NORMAL)
[2017-11-20 21:08] VITALS: BP 117/49
[2017-11-21 01:39] VITALS: BP 115/44; BP 150/67
[2017-11-21 05:29] LABS: BASOPHILS 0.5 % (0-2); HEMATOCRIT 31.9 % (36.0-48.0); HEMOGLOBIN 10.7 g/dL (12-16); IMMATURE GRANULOCYTES 0.3 % (0-5); LYMPHOCYTES 28.2 % (15-50); MCH 32.9 pg (26.0-34.0); MCHC 33.5 g/dL (31.0-37.0); MCV 98.2 fL (80.0-100.0); MEAN PLATELET VOLUME 9.1 fL (7.4-10.4); MONOCYTES 12.3 % (2-11); NEUTROPHILS 56.7 % (40-80); PLATELET COUNT 232 10x3/uL (130-400); RBC 3.25 10x6/uL (4.00-5.40); RDW 13.8 % (11.5-14.5); WBC 6.5 10x3/uL (4.8-10.8)
[2017-11-21 05:47] LABS: ANION GAP 13.8 mmol/L (8-16); CALCIUM 9.2 mg/dL (8.5-10.1); CARBON DIOXIDE 25.8 mmol/L (21.0-32.0); CREATININE - SERUM 1.4 mg/dL (0.6-1.3); POTASSIUM - SERUM 4.6 mmol/L (3.5-5.1)
[2017-11-21 06:14] VITALS: BP 112/47
[2017-11-21 08:51] VITALS: BP 107/40
[2017-11-21 11:19] LABS: HAPTOGLOBIN 50 mg/dL (34-200)
[2017-11-21 12:04] VITALS: BP 109/40
[2017-11-21] MEDS ORDERED: PROTONIX40 MG PO (12:40)
[2017-11-21] MEDS ORDERED: ELIQUIS5 MG PO ×2 (12:41→12:42)
[2017-11-21 13:18] LABS: ACLA - IGG AB <9 GPL U/mL (0-14); ACLA - IGM AB 23 MPL U/mL (0-12)
[2017-11-22 03:12] LABS: PROTEIN S - FREE 92 % (57-157); PROTEIN S - FREE 98 % (57-157); PROTEIN S - FUNCTIONAL 79 % (63-140); PROTEIN S - TOTAL 82 % (60-150); PROTEIN S - TOTAL 83 % (60-150)
[2017-11-22 07:23] LABS: CA125 11.5 U/mL (0.0-38.1)
[2017-11-22 13:12] LABS: CA 27-29 40.3 U/mL (0.0-38.6)
[2017-11-24 08:09] LABS: LUPUS - INTERPRETATION Comment: (()); LUPUS - THROMBIN TIME 15.6 sec (0.0-23.0); LUPUS - dRVVT 30.3 sec (0.0-47.0)
[2017-11-25 03:10] LABS: PROTEIN C - ANTIGEN 100 % (60-150); PROTEIN C - FUNCTIONAL 128 % (73-180)
[2017-11-27 19:12] LABS: FACTOR II DNA ANALYSIS Negative (())
== END 2017-11-21 14:36 | disposition home or self-care (01) | DRG 176 ==
LOC: D.ER 15:09 → D.M2 11-20 00:16 → D.EDHOLD 11-20 00:16 → D.M2 11-20 00:27
PROVIDERS: Emergency Medicine; Family Medicine; Internal Medicine Hematology & Oncology; Internal Medicine Nephrology; Internal Medicine Pulmonary Disease
DX: I26.99 Other pulmonary embolism without acute cor pulmonale (principal); D68.59 Other primary thrombophilia; N17.9 Acute kidney failure, unspecified; I82.441 Acute embolism and thrombosis of right tibial vein; I27.20 Pulmonary hypertension, unspecified; I08.2 Rheumatic disorders of both aortic and tricuspid valves; G25.81 Restless legs syndrome; F32.9 Major depressive disorder, single episode, unspecified; F41.9 Anxiety disorder, unspecified; E03.9 Hypothyroidism, unspecified; K21.9 Gastro-esophageal reflux disease without esophagitis; D50.9 Iron deficiency anemia, unspecified; E55.9 Vitamin D deficiency, unspecified; R00.1 Bradycardia, unspecified; Z86.718 Personal history of other venous thrombosis and embolism

== ENCOUNTER → 2017-12-03 08:07 | Outpatient (CLI) | payer BC ==
[2017-11-20 11:58] VITALS: BMI 25.8
[~2017-12-03 08:07] MED LIST changes: +GLUCOPHAGE XR750 MG PO; +PROTONIX40 MG PO
== END | disposition home or self-care (01) ==
LOC: D.RT 08:00 → D.CT 09:30
DX: J84.9 Interstitial pulmonary disease, unspecified (principal); J45.909 Unspecified asthma, uncomplicated

== ENCOUNTER 2017-12-24 08:00 | Outpatient (CLI) | payer BC ==
[2017-11-20 11:58] VITALS: BMI 25.8
== END 2017-12-24 09:00 | disposition home or self-care (01) ==
LOC: D.MAMMO 08:00
DX: R97.8 Other abnormal tumor markers (principal)

== ENCOUNTER → 2018-07-07 09:48 | Outpatient (CLI) | payer BC, MEDICARE ==
[2017-11-20 11:58] VITALS: BMI 25.8
--- NOTE | 2018-07-07 18:37 | EC ---
PATIENT:SHIRLEY SIMON DATE OF SERVICE: 07/07/18 SEX: F MEDICAL RECORD: [id number] DATE OF : 54 [facility] AGE OF PATIENT: 67 ADMISSION DATE: 07/07/18 REFERRING PHYSICIAN: INTERPRETING PHYSICIAN: NYLA CAMPOS MD ECHOCARDIOGRAM REPORT ECHO CHARGES 4 ECHO COMPLETE Date: 07/07/18 CLINICAL DIAGNOSIS: PULM HTN HX OF BLOOD CLOTS TO LEGS/LUNGS ECHOCARDIOGRAPHIC MEASUREMENTS (adult normal given) AC root (d.<3.7cm) 3.3 cm LV Septum d (<1.2 cm> 1.4 cm Valve Excursion 1.5 cm LV Septum (systole) 1.5 cm Left Atria (s.<4.0cm> 4.2 cm LVPW d(<1.2cm) 1.8 cm RV (d.<2.3cm) 3.4 cm LVPW (sytole) 2.0 cm LV diastole(<5.6CM) 4.5 cm MV E-F(>70mm/sec) cm LV systole 2.7 cm LVOT Diameter 1.9 cm MV exc.(>10mm) 1.4 cm Est.ejection fraction (50-75%) % DOPPLER: LVIT cm/sec A 75.0 cm/sec E 59.0 cm/sec LA cm/sec RVSP 44 mmHg LVOT 109 cm/sec AOP1/2T 756 m/s Asc. Ao 180 cm/sec RVOT 75 cm/sec RA cm/sec PA 96 cm/sec AV Gradient Peak 12.93mmHg AV Mean 6.96 mmHg AV Area 4.2 cm MV Gradient Peak 2.57 mmHg MV Mean 0.87 mmHg MV Area cm COMMENTS: Manufacturing Advisor: Brooke COSME Shipping Lead Person: Cruz Campos TAPE# PACS Pericardial Effusion N DATE OF SERVICE: 07/07/2018 PROCEDURE: Echocardiogram. FINDINGS: 1. Left ventricular chamber size is within normal limits. Left ventricular systolic function is normal. Overall ejection fraction estimated at 55% to 60%. 2. Left atrium is enlarged at 4.2 cm. Right atrium and right ventricle chamber sizes are as well mildly dilated. 3. Valvular structures have normal structure and motion. ECHOCARDIOGRAM REPORT [id number] SHIRLEY SIMON 4. Doppler interrogation reveals mild aortic insufficiency, mild tricuspid regurgitation, no other valvular insufficiency or stenosis. 5. No evidence of pericardial effusion or left ventricular thrombus. TRANSINT:[id number] Voice Confirmation ID: [id number] DOCUMENT ID: [id number] NYLA CAMPOS MD at 1837 CC: [id number] DICTATION DATE: 07/07/18 1123 LEASE ADMINISTRATION ANALYST: 07/07/18 1143 [facility] [address] [place] [id number]
== END | disposition home or self-care (01) ==
LOC: D.ECHO 09:48 → D.CT 11:00
DX: J84.9 Interstitial pulmonary disease, unspecified (principal); I27.21 Secondary pulmonary arterial hypertension

== ENCOUNTER → 2018-10-22 07:46 | Outpatient (CLI) | payer MEDICARE, BC ==
[2017-11-20 11:58] VITALS: BMI 25.8
== END | disposition home or self-care (01) ==
LOC: D.RT 07:46 → D.CT 10:00 → D.RT 11:00
PROVIDERS: ATTEND Internal Medicine Pulmonary Disease
DX: J84.9 Interstitial pulmonary disease, unspecified (principal); J45.909 Unspecified asthma, uncomplicated

== ENCOUNTER 2019-03-29 08:00 | Outpatient (CLI) | payer OTHER ==
[2017-11-20 11:58] VITALS: BMI 25.8
== END 2019-03-29 23:59 | disposition home or self-care (01) ==
LOC: D.MAMMO 08:00
PROVIDERS: ATTEND Internal Medicine Hematology & Oncology
DX: R97.8 Other abnormal tumor markers (principal)

== ENCOUNTER → 2019-04-19 08:41 | Outpatient (CLI) | payer OTHER ==
[2017-11-20 11:58] VITALS: BMI 25.8
--- NOTE | 2019-04-21 13:38 | EC ---
PATIENT:SHIRLEY SIMON DATE OF SERVICE: 04/19/19 SEX: F MEDICAL RECORD: [id number] DATE OF : 54 LOCATION:[facility] AGE OF PATIENT: 68 ADMISSION DATE: 04/19/19 REFERRING PHYSICIAN: INTERPRETING PHYSICIAN: STEPHANIE CADE MD ECHOCARDIOGRAM REPORT ECHO CHARGES 4 ECHO COMPLETE Date: 04/19/19 CLINICAL DIAGNOSIS: PULMONARY HTN ECHOCARDIOGRAPHIC MEASUREMENTS (adult normal given) AC root (d.<3.7cm) 3.4 cm LV Septum d (<1.2 cm> 1.4 cm Valve Excursion 2.1 cm LV Septum (systole) 2.0 cm Left Atria (s.<4.0cm> 3.5 cm LVPW d(<1.2cm) 1.2 cm RV (d.<2.3cm) 2.4 cm LVPW (sytole) 2.0 cm LV diastole(<5.6CM) 4.8 cm MV E-F(>70mm/sec) cm LV systole 2.5 cm LVOT Diameter 1.9 cm MV exc.(>10mm) cm Est.ejection fraction (50-75%) % DOPPLER: LVIT cm/sec A 56.0 cm/sec E 45.0 cm/sec LA cm/sec RVSP 35.0 mmHg LVOT 94.0 cm/sec AOP1/2T m/s Asc. Ao 131 cm/sec RVOT 64.0 cm/sec RA cm/sec PA 72.0 cm/sec AV Gradient Peak 6.9 mmHg AV Mean 3.1 mmHg AV Area 1.9 cm MV Gradient Peak 2.4 mmHg MV Mean 0.84 mmHg MV Area cm COMMENTS: Radiation Engineer: 1 TALIA PRITCHARDOE Administrative Associate: 3 Dr. Bowers TAPE# PACS Pericardial Effusion N DATE OF SERVICE: Adequate 2D, color flow, spectral Doppler, and M-mode. LVH is present. LV internal dimensions are normal. Wall motion is normal. EF is greater than or equal to 55%. Aortic valve is sclerotic. No evidence of stenosis by Doppler interrogation. Left atrium is normal at 3.5 cm. Mitral valve shows no prolapse. Mild MR. Right-sided chambers grossly normal. Mild TR. RV systolic pressure is estimated greater than or equal to 35 mmHg via the continuity equation. ECHOCARDIOGRAM REPORT [id number] SHIRLEY SIMON TRANSINT:[id number] Voice Confirmation ID: [id number] DOCUMENT ID: [id number] STEPHANIE CADE MD at 1338 CC: [id number] DICTATION DATE: 04/19/19 1236 BUSINESS RISK ANALYST: 04/19/19 1255 DEP CLI 04/19/19 [place] [id number] [place] [id number]
== END | disposition home or self-care (01) ==
LOC: D.ECHO 08:41
PROVIDERS: ATTEND Internal Medicine Pulmonary Disease
DX: J45.909 Unspecified asthma, uncomplicated (principal); J84.9 Interstitial pulmonary disease, unspecified; I27.21 Secondary pulmonary arterial hypertension

== ENCOUNTER 2020-09-28 16:49 | Observation (INO) | payer OTHER ==
[~2020-09-28] VITALS: Ht 157.5 cm; Wt 66.8 kg
[2020-09-28 17:20] LABS: BASOPHILS 0.2 % (0-2); EOSINOPHILS 1.4 % (0-7); HEMATOCRIT 35.6 % (36.0-48.0); HEMOGLOBIN 12.1 g/dL (12-16); IMMATURE GRANULOCYTES 0.2 % (0-5); LYMPHOCYTE ABS# 1.14 10x3/uL (1.18-3.74); LYMPHOCYTES 11.8 % (15-50); MCH 32.2 pg (26.0-34.0); MCV 94.7 fL (80.0-100.0); MEAN PLATELET VOLUME 9.7 fL (7.4-10.4); MONOCYTES 5.4 % (2-11); NEUTROPHIL ABS# 7.84 10x3/uL (1.56-6.13); PLATELET COUNT 271 10x3/uL (130-400); RBC 3.76 10x6/uL (4.00-5.40); RDW 14.3 % (11.5-14.5); WBC 9.7 10x3/uL (4.8-10.8)
[2020-09-28 17:30] LABS: APTT 27.9 SECONDS (22.8-39.4); INR 1.03 (0.85-1.17); PROTIME 12.5 SECONDS (11.6-15.0)
[2020-09-28 17:31] LABS: CALCIUM 8.4 mg/dL (8.5-10.1); CARBON DIOXIDE 23.7 mmol/L (21.0-32.0); CHLORIDE - SERUM 106 mmol/L (98-107); SODIUM 139 mmol/L (136-145); UREA NITROGEN 15 mg/dL (7-18); eGFR NON AFRICAN AMERICAN 43 mL/min (90-120)
[2020-09-28 17:34] LABS: CALC OSMOLALITY 282 mosm/kg (275-300); CREATININE - SERUM 1.3 mg/dL (0.6-1.3); GLUCOSE 167 mg/dL (74-106)
[2020-09-28 17:48] LABS: ALBUMIN 3.6 g/dL (3.4-5.0); ALKALINE PHOSPHATASE 70 U/L (30-120); BILIRUBIN - TOTAL 0.42 mg/dL (0.2-1.3); CKMB 1.7 U/L (0.0-3.6); CREATINE KINASE 97 UL (21-215); MAGNESIUM - SERUM 1.9 mg/dL (1.8-2.4); TROPONIN-I 0.036 ng/mL (0.000-0.060)
[2020-09-28 17:50] LABS: ALT (SGPT) < 6 U/L (10-68); PROTEIN - SERUM 7.2 g/dL (6.4-8.2)
[2020-09-28 19:30] VITALS: BP 138/56
[2020-09-28 23:08] VITALS: BP 137/67
--- NOTE | 2020-09-28 23:10 | NUR ---
REPORT RECEIVED, PT A&O, UP IN BED WITH FRIEND AT BEDSIDE. NO S/S OF DISTRESS OBSERVED. RR EVEN AND UNLABORED ON RA. BED LOCKED AND LOWERED, CL IN REACH. ASSESSMENT COMPLETED. WILL CONT POC.
[2020-09-29] MEDS ORDERED: ULTRAM50 MG PO (01:18)
[2020-09-29 01:41] LABS: CKMB 1.3 U/L (0.0-3.6); CREATINE KINASE 92 UL (21-215)
[2020-09-29 01:42] LABS: TROPONIN-I 0.208 ng/mL (0.000-0.060)
[2020-09-29 03:01] VITALS: BP 137/67; BMI 26.9
[2020-09-29 04:00] VITALS: BP 115/45
[2020-09-29 07:14] LABS: BASOPHILS 0.3 % (0-2); EOSINOPHILS 0.8 % (0-7); HEMATOCRIT 33.4 % (36.0-48.0); HEMOGLOBIN 10.8 g/dL (12-16); IMMATURE GRANULOCYTES 0.2 % (0-5); LYMPHOCYTE ABS# 1.64 10x3/uL (1.18-3.74); LYMPHOCYTES 12.9 % (15-50); MCH 30.3 pg (26.0-34.0); MCHC 32.3 g/dL (31.0-37.0); MCV 93.8 fL (80.0-100.0); MEAN PLATELET VOLUME 9.6 fL (7.4-10.4); MONOCYTES 10.1 % (2-11); NEUTROPHIL ABS# 9.62 10x3/uL (1.56-6.13); NEUTROPHILS 75.7 % (40-80); PLATELET COUNT 245 10x3/uL (130-400); RBC 3.56 10x6/uL (4.00-5.40); RDW 14.3 % (11.5-14.5)
[2020-09-29 07:19] LABS: WBC 12.7 10x3/uL (4.8-10.8)
[2020-09-29 07:48] LABS: CALC OSMOLALITY 279 mosm/kg (275-300); CALCIUM 8.8 mg/dL (8.5-10.1); CARBON DIOXIDE 28.3 mmol/L (21.0-32.0); CHLORIDE - SERUM 104 mmol/L (98-107); CHOL - HDL RATIO 3.5 ratio (2.3-4.1); CHOLESTEROL, TOTAL 200 mg/dL (0-200); CREATINE KINASE 73 UL (21-215); CREATININE - SERUM 1.1 mg/dL (0.6-1.3); GLUCOSE 106 mg/dL (74-106); HDL CHOLESTEROL 57 mg/dL (32-96); LDL CHOLESTEROL 112 mg/dL (0-100); MAGNESIUM - SERUM 1.8 mg/dL (1.8-2.4); PHOSPHOROUS 3.9 mg/dL (2.5-4.9); POTASSIUM - SERUM 4.1 mmol/L (3.5-5.1); SODIUM 140 mmol/L (136-145); THYROID STIMULATING HORMONE 0.53 uIU/mL (0.36-3.74); TRIGLYCERIDE 157 mg/dL (30-200); UREA NITROGEN 14 mg/dL (7-18); eGFR NON AFRICAN AMERICAN 52 mL/min (90-120)
[2020-09-29 07:49] LABS: TROPONIN-I 0.144 ng/mL (0.000-0.060)
[2020-09-29 07:57] LABS: APTT 30.5 SECONDS (22.8-39.4); INR 1.32 (0.85-1.17); PROTIME 15.2 SECONDS (11.6-15.0)
[2020-09-29 08:29] VITALS: Ht 157.5 cm; Wt 66.8 kg
[2020-09-29] MEDS ORDERED: TOPROL XL25 MG PO (10:30)
--- NOTE | 2020-09-29 11:33 | NUR ---
DC INSTRUCTIONS GIVEN TO PT AND . PT VERB UNDERSTANDING.
== END 2020-09-29 11:38 | disposition home or self-care (01) ==
LOC: D.ER 16:49 → D.M2 20:37 → OBSVTIME 20:37 → D.M2 09-29 11:38
PROVIDERS: Family Medicine; ADMIT Family Medicine; ATTEND Family Medicine
DX: I47.1 Supraventricular tachycardia (principal); R07.9 Chest pain, unspecified; Z79.01 Long term (current) use of anticoagulants; E03.9 Hypothyroidism, unspecified; J45.909 Unspecified asthma, uncomplicated; K21.9 Gastro-esophageal reflux disease without esophagitis

== ENCOUNTER 2020-10-25 18:00 | Outpatient (CLI) | payer OTHER ==
[2020-09-29 08:29] VITALS: BMI 26.9
[~2020-10-25 18:00] MED LIST changes: +TOPROL XL25 MG PO; +ULTRAM50 MG PO
== END 2020-10-25 23:59 | disposition home or self-care (01) ==
LOC: D.MAMMO 18:00
PROVIDERS: ATTEND Clinical Nurse Specialist Family Health
DX: Z12.31 Encounter for screening mammogram for malignant neoplasm of breast (principal)

== ENCOUNTER → 2020-11-07 08:12 | Outpatient (CLI) | payer OTHER ==
[2020-09-29 08:29] VITALS: BMI 26.9
--- NOTE | 2020-11-09 08:20 | ST ---
PATIENT:SHIRLEY SIMON MEDICAL RECORD: [id number] SEX: F LOCATION:[facility] ORDER #: ADMISSION DATE: 11/07/20 AGE OF PATIENT: 69 REFERRING PHYSICIAN: INTERPRETING PHYSICIAN: STEPHANIE CADE MD DATE OF SERVICE: 11/07/2020 NUCLEAR STRESS TEST Gated is normal. Normal wall motion, normal EF 71%. SPECT imaging: SPECT imaging in the short axis view shows a reversible defect from the mid anterior wall down to the anterior apex. Horizontal axis: Horizontal axis confirms a reversible defect from the mid anterior wall down to the anterior apex. Vertical axis: Vertical axis shows good uptake along the lateral wall and septum. FINAL IMPRESSION: 1. Normal gated, normal wall motion, EF 71%. 2. Abnormal SPECT imaging reversible defect extending from the mid anterior wall down to the anterior apex. The defect severity is moderate, defect size is medium. FINAL RECOMMENDATION: In this patient with a history of troponin elevation in the setting of cardiac arrhythmias in the setting of supraventricular tachycardia, the scan is concerning for fixed obstruction at least along the LAD distribution, I would consider diagnostic angiography for further evaluation. TRANSINT:[id number] Voice Confirmation ID: [id number] DOCUMENT ID: [id number] STEPHANIE CADE MD at 0820 CC: [id number] DICTATION DATE: 11/08/20 09 FOOD AND BEVERAGE MANAGER: 11/09/20 0240 DEP CLI 11/07/20 [facility] [address] [place] [address]
== END | disposition home or self-care (01) ==
LOC: D.HCCECHO 08:12
PROVIDERS: ATTEND Internal Medicine Interventional Cardiology
DX: I47.1 Supraventricular tachycardia (principal); R06.00 Dyspnea, unspecified

== ENCOUNTER 2020-11-22 11:02 | Day surgery (SDC) | payer OTHER ==
[~2020-11-22] VITALS: Ht 157.5 cm; Wt 64.9 kg
--- NOTE | ~2020-11-22 | HEMODYNAMI ---
PATIENT:SHIRLEY SIMON MEDICAL RECORD: [id number] : 54 LOCATION:[facility] ADMISSION DATE: 11/22/20 Generatedon:113:58 Patient name: SHIRLEY SIMON Patient #: [id number] SSN: : 1950 Date of study: 11/22/2020 Page: Of Hemodynamic Procedure Report Patient Data Patient Demographics Procedure consent was obtained First Name: SHIRLEY Gender: Female Last Name: ALFRED : 1950 [facility] Initial: VIC Age: 69 year(s) Patient #: [id number] Race: Unknown Additional ID: [id number] Contact details Address: [address] [place] [address] State: [place] City: [place] Zip code: [address] Admission Admission Data Admission Date: 11/22/2020 Admission Time: 11:02 Admit Source: Other Lab Results Lab Result Date: 11/22/2020 Lab Result Time: 0:00 Biochemistry Name Units Result Min Max BUN mg/dl 14 --(--*-)-- 7 18 Creatinine mg/dl 1.1 --(--*-)-- 0.6 1.3 CBC Name Units Result Min Max Hemoglobin g/dl 12.4 *-(----)-- 13.5 17.5 Procedure Procedure Types Cath Procedure Diagnostic Procedure [facility] w/Coronaries Aortic Root Angiography Procedure Description Procedure Date Procedure Date: 11/22/2020 Procedure Start Time: 13:36 Procedure End Time: 13:54 Procedure Staff Name Function Thuan Molina MD Performing Physician Eric Lemus RT Monitor Steff Ochoa RT Scrub Erna Morris RN Nurse Procedure Data Cath Procedure Fluoroscopy Diagnostic fluoroscopy Total fluoroscopy Time: 3.5 time: 3.5 min min Diagnostic fluoroscopy Total fluoroscopy dose: 637 dose: 637 mGy mGy Contrast Material Contrast Material Type Amount (ml) Isovue 370 124 Entry Location Entry Primary Successful Side Size Upsize Upsize Entry Closure [place] ccessful Closure Location (Fr) 1 (Fr) 2 (Fr) Remarks Device Remarks Radial Right 6 Fr Mechanical artery Short Compression Estimated blood loss: 5 ml Diagnostic catheters Device Type Used For End Catheter Placement DIAGNOSTIC [place] 110cm 5 LV Angiography Fr catheter ([id number]) DIAGNOSTIC Pigtail 5Fr Aortic Root catheter ([id number]) Angiography Procedure Complications No complications Procedure Medications Medication Administration Route Dosage Oxygen etCO2 Nasal cannula 2 l/min Lidocaine 2% added to field 20 Heparin Flush Bag added to field 2 bags (1000units/500ml NS) 0.9% NaCl I.V. 100 ml/hr Versed I.V. 1 mg Fentanyl I.V. 50 mcg Radial Cocktail I.A. 1 syringe (Verapamil 2mg/Nitro 400mcg/Heparin 1500units) Versed I.V. 1 mg Fentanyl I.V. 50 mcg Nitroglycerin IC/IA I.C. 100 mcg Versed I.V. 1 mg Fentanyl I.V. 50 mcg Versed I.V. 1 mg Fentanyl I.V. 50 mcg Hemodynamics Rest HGB: 12.4 (g/dl) Heart Rate: 54 (bpm) Pressure Samples Time Site Value (mmHg) Purpose Heart Use Rate(bpm) 13:38 LV 71/4,3 EDP 141 13:39 LV 101/-1,11 Snapshot 63 13:39 LV 106/-6,8 Snapshot 75 13:43 AO 95/54(73) Snapshot 71 Gradients Valve Time Site Site Mean SEP/DFP Peak To Heart Use 1 2 (mmHg) (sec/min) Peak Rate (mmHg) (bpm) Aortic 13:40 LV AO 74 Snapshots Pre Cath Intra NCS Post Cath Vital Signs Time Heart Resp SPO2 etCO2 NIBP (mmHg) Rhythm Pain Sedation Rate (ipm) (%) (mmHg) Status Level (bpm) 13:15:26 54 13 99 17.2 120/58(86) NSR 0 (11) 10(A) , No pain 13:19:36 51 15 97 36.7 120/54(81) NSR 0 (11) 10(A) , No pain 13:23:46 53 14 97 36.7 131/55(86) NSR 0 (11) 10(A) , No pain 13:28:02 56 16 97 29.2 106/52(73) NSR 0 (11) 10(A) , No pain 13:32:06 58 11 97 39.7 109/55(99) NSR 0 (11) 10(A) , No pain 13:36:10 60 15 97 28.4 126/58(77) NSR 0 (11) 10(A) , No pain 13:40:16 73 17 96 43.4 94/51(69) NSR 0 (11) 9(A) , No pain 13:44:15 70 10 96 45.6 111/56(100) NSR 0 (11) 9(A) , No pain 13:48:23 75 14 96 36.7 114/54(85) NSR 0 (11) 10(A) , No pain 13:52:31 73 11 97 46.4 124/58(84) NSR 0 (11) 10(A) , No pain Medications Time Medication Route Dose Verified Delivered Reason Notes Effectiveness by by 13:15:35 Oxygen etCO2 2 l/min Thuan Buffie used for Nasal Jesse Morris RN procedure cannula 13:15:44 Lidocaine 2% added 20ml Thuan Thuan for local to vial Jesse Molina MD anesthetic field 13:15:51 Heparin Flush added 2 bags Thuan Thuan used for Bag to Jesse Molina MD procedure (1000units/500ml field NS) 13:16:00 0.9% NaCl I.V. 100 Thuan Buffie Per ml/hr Jesse Morris RN physician 13:35:37 Versed I.V. 1 mg Thuan Buffie for sedation Jesse Morris RN 13:35:43 Fentanyl I.V. 50 mcg Thuan Buffie for sedation Jesse Morris RN 13:37:06 Radial Cocktail I.A. 1 Thuan Thuan for (Verapamil syringe Jesse Molina MD vasodilation 2mg/Nitro 400mcg/Heparin 1500units) 13:37:10 Versed I.V. 1 mg Thuan Buffie for sedation Jesse Morris RN 13:37:13 Fentanyl I.V. 50 mcg Thuan Buffie for sedation Jesse Morris RN 13:41:07 Versed I.V. 1 mg Thuan Buffie for sedation Jesse Morris RN 13:41:15 Fentanyl I.V. 50 mcg Thuan Buffie for sedation Jesse Morris RN 13:44:51 Nitroglycerin I.C. 100 mcg Thuan Thuan for IC/IA Jesse shannon 13:48:17 Versed I.V. 1 mg Thuan Erna for sedation Jesse Morris RN 13:48:21 Fentanyl I.V. 50 mcg Thuan Umanzor for sedation Jesse Morris RN Procedure Log Time Note 12:39:22 Admit Source: Other 12:39:59 Procedure Status Elective Heart Cath (OP). 13:00:20 Erna Morris RN sent for patient. Start room use. 13:07:37 Time tracking: Regular hours (M-F 7:00 - 5:00) 13:07:41 Plan of Care:Hemodynamics will remain stable., Cardiac rhythm will remain stable., Comfort level will be maintained., Respiratory function will remain adequate., Patient/ family verbilizes understanding of procedure., Procedure tolerated without complication., Recovers from procedure without complications.. 13:07:48 Patient received from Pre/Post Procedure Room to CCL 2 Alert and oriented. Tansferred to table in Supine position. 13:07:56 Signed procedure consent form obtained from patient. 13:07:56 Warm blankets applied, and ivania hugger turned on for patient comfort. 13:07:57 Correct patient and procedure confirmed by team. 13:07:57 ECG and BP/O2 sat monitors applied to patient. 13:14:08 Vital chart was started 13:14:09 Baseline sample Acquired. 13:14:13 Rhythm: sinus rhythm 13:14:14 Full Disclosure recording started 13:14:19 H&P Date Dictated: 11/22/2020 H&P Addendum completed by physician on day of procedure. (MUST COMPLETE FOR ALL OUTPATIENTS). 13:14:20 Pre-procedure instructions explained to patient. 13:14:20 Pre-op teaching completed and patient verbalized understanding. 13:14:22 Family in patients room. 13:14:23 Patient NPO since Midnight. 13:14:30 Is the patient allergic to Iodine/contrast media? No. 13:14:32 Is patient on blood thinner?Yes 13:14:36 ACC The patient was administered the following blood thiners within the last 24 hours: Eliquis 13:14:42 Patient diabetic? No. 13:14:49 Snore? Yes 13:14:52 Sleep apnea? No 13:14:54 Deviated septum? No 13:14:56 Opens mouth fully? Yes 13:14:57 Sticks out tongue? Yes 13:15:02 Airway obstruction? No ? 13:15:05 Dentures? No ? 13:15:10 Pre procedure: right femoral pulse 2+ Normal; easily identifiable; not easily obliterated 13:15:13 Pre procedure: right radial pulse 2+ Normal; easily identifiable; not easily obliterated 13:15:16 Modified Tarun's test Ulnar < 7 seconds 13:15:23 Patient pain scale 0/10 ?. 13:15:35 Oxygen 2 l/min etCO2 Nasal cannula was administered by Erna Morris RN; used for procedure; Verbal order read back and verified. 13:15:37 IV patent on arrival in left forearm with 0.9% NaCl at [facility]. 13:15:44 Lidocaine 2% 20ml vial added to field was administered by Thuan Moilna MD; for local anesthetic; Verbal order read back and verified. 13:15:51 Heparin Flush Bag (1000units/500ml NS) 2 bags added to field was administered by Thuan Molina MD; used for procedure; Verbal order read back and verified. 13:15:59 Lab Result : BUN 14 mg/dl 13:15:59 Lab Result : Creatinine 1.1 mg/dl 13:15:59 Lab Result : Hemoglobin 12.4 g/dl 13:16:00 0.9% NaCl 100 ml/hr I.V. was administered by Erna Morris RN; Per physician; Verbal order read back and verified. 13:16:02 Lab results completed and on chart. 13:16:09 Risk of Mortality: 0.1 13:16:12 Risk of blood transfusion: 1.1 13:16:17 Risk of EULA: 1.8 13:16:24 Sharps counted by scrub and verified by R.N. 13:16:58 3a) 45-59 Moderately reduced kidney function. 13:17:01 Maximum allowable contrast dose (3.7 X eGFR X 0.75)144 ml. 13:17:10 Use device set Radial Dx or PCI 13:17:11 ACIST Syringe (56981) opened to sterile field. 13:17:11 Medline Cath Pack ([id number]) opened to sterile field. 13:17:12 Bag Decanter () opened to sterile field. 13:17:12 ACIST Hand Control (78361) opened to sterile field. 13:17:13 ACIST Manifold (93956) opened to sterile field. 13:17:13 Tegaderm 4 x 4 (1626W) opened to sterile field. 13:17:14 MBrace Wrist Support ([id number]) opened to sterile field. 13:17:15 NEEDLE Cook 21G 4cm Radial (D07139) opened to sterile field. 13:17:17 EMERALD Guide Wire (304-498) opened to sterile field. 13:17:18 SHEATH 6FR RAIN (6201815) opened to sterile field. 13:34:52 Physician arrived 13:34:55 Alarms reviewed by REmmanuel N. 13:34:56 --------ALL STOP TIME OUT------ 13:34:57 Final Timeout: patient, procedure, and site verified with staff and physician. All members of the team are in agreement. 13:34:59 Right Radial & Right Groin site verified by team. 13:35:04 Fire Safety Assessment: A--An alcohol-based skin anteseptic being used preoperatively., B--The operative or invasive procedure is being performed above the xiphoid process or in the oropharynx., C--Open oxygen or nitrous oxide is being used., D--An ESU, laser, or fiber-optic light is being used., E--There are other possible contributors. 13:35:08 Physical assessment completed. ASA score P 2 - A patient with mild systemic disease as per Thuan Molina MD. 13:35:12 3a) 45-59 Moderately reduced kidney function. 13:35:19 Maximum allowable contrast dose (3.7 X eGFR X 0.75)144 ml. 13:35:23 Sedation plan: IV Moderate Sedation Medication:Versed, Fentanyl 13:35:37 Versed 1 mg I.V. was administered by Erna Morris RN; for sedation; Verbal order read back and verified. 13:35:43 Fentanyl 50 mcg I.V. was administered by Erna Morris RN; for sedation; Verbal order read back and verified. 13:35:59 Procedure started. 13:36:11 Local anesthetic to right radial artery with Lidocaine 2% by Thuan Molina MD.INITIAL ACCESS ONLY 13:36:21 A 6 Fr Short sheath was inserted into the Right Radial artery 13:36:32 A DIAGNOSTIC [place] 110cm 5 Fr catheter (178459) was advanced over the wire and used for LV Angiography. 13:36:43 LV angiography performed. 13:36:46 LV gram done using ARIAS 13:36:48 LV hemodynamics recorded. 13:36:50 Injector settings: Ml/sec: 5, Volume: 15, 13:37:06 Radial Cocktail (Verapamil 2mg/Nitro 400mcg/Heparin 1500units) 1 syringe I.A. was administered by Thuan Molina MD; for vasodilation; Verbal order read back and verified. 13:37:10 Versed 1 mg I.V. was administered by Erna Morris RN; for sedation; Verbal order read back and verified. 13:37:13 Fentanyl 50 mcg I.V. was administered by Erna Morris RN; for sedation; Verbal order read back and verified. 13:39:40 EF : 60 % 13:40:17 LCA angiography performed. 13:41:07 Versed 1 mg I.V. was administered by Erna Morris RN; for sedation; Verbal order read back and verified. 13:41:15 Fentanyl 50 mcg I.V. was administered by Erna Morris RN; for sedation; Verbal order read back and verified. 13:44:51 Nitroglycerin IC/IA 100 mcg I.C. was administered by Thuan Molina MD; for vasodilation; Verbal order read back and verified. 13:46:50 RCA angiography performed. 13:47:27 Catheter exchanged over wire. 13:47:48 A DIAGNOSTIC Pigtail 5Fr catheter ([id number]) was advanced over the wire and used for Aortic Root Angiography. 13:48:17 Versed 1 mg I.V. was administered by Erna Morris RN; for sedation; Verbal order read back and verified. 13:48:21 Fentanyl 50 mcg I.V. was administered by Erna Morris RN; for sedation; Verbal order read back and verified. 13:49:12 Procedure type changed to Cath procedure, Diagnostic procedure, LHC, LHC w/Coronaries, Aortic Root Angiography 13:49:44 ZEPHYR REGULAR TR BAND (737522) opened to sterile field. 13:49:49 Catheter removed. 13:50:41 Sheath removed intact; hemostasis achieved with Mechanical Compression to the Right Radial artery. 13:50:43 Procedure ended.(Physican Out) 13:50:51 Fluoroscopy time 03.50 minutes. 13:50:57 Flurop Dose total: 637 13:50:57 Fluoroscopy dose: 637 mGy 13:51:06 Dose Area Product 35262 mGy/cm. 13:52:47 Contrast amount:Isovue 370 124ml. 13:52:51 Maximum allowable dose exceeded? No. 13:52:52 Sharps counted by scrub and verified by R.N. 13:52:56 Calera band inflated with 10cc of air. 13:52:58 Insertion/operative site no bleeding no hematoma. 13:53:06 Post right radial artery:stable 13:53:08 Post Procedure Pulses reassessed and unchanged 13:53:15 Post procedure rhythm: unchanged. 13:53:17 Estimated blood loss: 5 ml 13:53:18 Post procedure instruction explained to patient.Patient verbalizes understanding. 13:53:22 Procedure and supply charges have been captured, reviewed, submitted and are correct. 13:53:45 Procedure Complication : No complications 13:53:48 Vital chart was stopped 13:53:54 [facility] Findings: MVD- MD will discuss options w/ pt 13:53:57 Operative report dictated upon procedure completion. 13:53:58 See physician's report for complete and final results. 13:54:00 Report given to Pre/Post Procedure Room. 13:54:18 Patient transfered to Pre/Post Procedure Room with Stretcher. 13:54:21 Procedure ended. 13:54:21 Full Disclosure recording stopped 13:54:28 End room use (Document Last) 13:55:05 End room use (Document Last) 13:55:28 End room use (Document Last) Device Usage Item Name Manufacture Quantity Catalog Hospital Part Current Minima l Lot# / Number Charge Number Stock Stock Serial# Code ACIST Acist 1 05257 819678 245774 [id number] 20 Syringe Medical (73573) Systems Inc Medline Medline 1 [id number] 026724 44730 841467 5 Cath Pack ([id number]) Bag Microtek 1 975960 98543 806101 5 Decanter Medical Inc. () ACIST Hand Acist 1 86425 760250 248788 744040 5 Control Medical (34279) Systems Inc ACIST Acist 1 40716 395932 590019 835873 5 Manifold Medical (94801) Systems Inc Tegaderm 4 3M 1 1626W 448549 866311 736214 5 x 4 (1626W) MBrace Advanced 1 140-0250-00 007182 62786 071622 5 Wrist Vascular Support Dynamics ([id number]) NEEDLE Cook Cook Medical 1 G00487 230747 823221 835438 5 21G 4cm Radial (B81903) EMERALD Cardinal 1 263-081 249819 402321 054726 5 Guide Wire Health (736-842) SHEATH 6FR Cardinal 1 0542062 464395 1903895 980877 5 [facility] Health (3432530) DIAGNOSTIC Terumo 1 40-4293 716320 998563 218619 5 [place] 110cm 5 Fr catheter (053851) DIAGNOSTIC Cardinal 1 [id number] 784025 952807 374941 5 Pigtail 5Fr Health catheter (019523K) ZEPHYR Cardinal 1 016958 034716 2668013 880493 5 REGULAR TR Health BAND (601269) Signature Audit [place] Stage Time Signature Unsigned Intra-Procedure 11/22/2020 Eric Lemus RT(R) 1:55:05 PM Intra-Procedure 11/22/2020 Erna Morris RN 1:55:28 PM Intra-Procedure 11/22/2020 Thuan Molina MD 1:58:00 PM Signatures Performing Physician : Signature : Thuan Molina MD Date : Time : Monitor : Eric Lemus RT Signature : Date : Time : Nurse : Erna Morris RN Signature : Date : Time : [facility] [address] [place] [address]
[2020-11-22] MEDS ORDERED: OMEPRAZOLE20 M1 PO (11:29)
[2020-11-22 11:32] VITALS: BP 147/47; Ht 157.5 cm; Wt 64.9 kg
[2020-11-22 11:43] LABS: BASOPHILS 0.7 % (0-2); EOSINOPHILS 2.1 % (0-7); HEMATOCRIT 37.5 % (36.0-48.0); HEMOGLOBIN 12.4 g/dL (12-16); LYMPHOCYTES 14.8 % (15-50); MCH 29.9 pg (26.0-34.0); MCHC 33.1 g/dL (31.0-37.0); MCV 90.3 fL (80.0-100.0); MEAN PLATELET VOLUME 7.1 fL (7.4-10.4); MONOCYTES 9.5 % (2-11); NEUTROPHILS 72.9 % (40-80); RBC 4.16 10x6/uL (4.00-5.40); RDW 16.8 % (11.5-14.5); WBC 8.2 10x3/uL (4.8-10.8)
[2020-11-22 11:47] LABS: PLATELET COUNT 317 10x3/uL (130-400)
[2020-11-22 12:02] LABS: CALCIUM 9.2 mg/dL (8.5-10.1); CARBON DIOXIDE 27.3 mmol/L (21.0-32.0); CHOL - HDL RATIO 4.8 ratio (2.3-4.1); CREATININE - SERUM 1.1 mg/dL (0.6-1.3); POTASSIUM - SERUM 4.3 mmol/L (3.5-5.1)
--- NOTE | 2020-11-22 14:03 | NUR ---
PT ARRIVED BY STRETCHER. PLACED ON MONITORS. ASSESSMENT COMPLETED. VSS AT THIS TIME. CALL LIGHT WITHIN REACH. FAMILY AT BEDSIDE.
--- NOTE | 2020-11-22 14:18 | NUR ---
PT RESTING COMFORTABLY. VSS AT THIS TIME. CALL LIGHT WITHIN REACH. RIGHT WRIST Z BAND IN PLACE. NO BLEEDING/HEMATOMA NOTED. FAMILY AT BEDSIDE.
--- NOTE | 2020-11-22 14:48 | NUR ---
RIGHT WRIST Z BAND IN PLACE. NO BLEEDING/HEMATOMA NOTED. CALL LIGHT WITHIN REACH. VSS. DENIES NAUSEA/PAIN. SET UP WITH DRINK.
--- NOTE | 2020-11-22 15:00 | NUR ---
2cc OF AIR REMOVED FROM Z BAND. NO BLEEDING/HEMATOMA NOTED. CALL LIGHT WITHIN REACH. FAMILY AT BEDSIDE. NO NEEDS.
--- NOTE | 2020-11-22 15:15 | NUR ---
2cc OF AIR REMOVED FROM Z BAND. NO BLEEDING/HEMATOMA NOTED. CALL LIGHT WITHIN REACH. NO NEEDS AT THIS TIME. FAMILY AT BEDSIDE. VSS.
--- NOTE | 2020-11-22 15:30 | NUR ---
5cc OF AIR REMOVED FROM Z BAND. NO BLEEDING/HEMATOMA NOTED. TOLERATING WELL. SET UP WITH SANDWICH TRAY. DENIES NAUSEA/PAIN.
--- NOTE | 2020-11-22 15:44 | NUR ---
Z BAND REMOVED AND DRESSING APPLIED. NO BLEEDING/HEMATOMA NOTED. PIV D/C'D WITH CATH TIP INTACT. TOLERATED WELL. PT INSTRUCTED TO GET UP AND DRESSED AT THIS TIME. FAMILY AT BEDSIDE TO ASSIST. DISCUSSED DISCHARGE INSTRUCTIONS WITH PT AND PT'S FAMILY. THEY VOICED UNDERSTANDING.
--- NOTE | 2020-11-22 16:00 | NUR ---
PT AMBULATED TO RESTROOM. VOIDED WITHOUT DIFFICULTY. STEADY GAIT NOTED. PT TAKEN OUT TO VEHICLE BY WHEELCHAIR. NO S/S OF DISTRESS NOTED. ALL BELONGINGS AND PAPERWORK IN HAND.
== END 2020-11-22 16:00 | disposition home or self-care (01) ==
LOC: D.CATH 11:02
PROVIDERS: ATTEND Internal Medicine Cardiovascular Disease
DX: I47.1 Supraventricular tachycardia (principal); I08.3 Combined rheumatic disorders of mitral, aortic and tricuspid valves; R94.39 Abnormal result of other cardiovascular function study; R06.00 Dyspnea, unspecified; J45.909 Unspecified asthma, uncomplicated; K21.9 Gastro-esophageal reflux disease without esophagitis; E07.9 Disorder of thyroid, unspecified